=== PATIENT | male | born 1960 | race African-American/Black ===

== ENCOUNTER 2023-06-14 12:13 | Emergency (ER) | payer OTHER, SELFPAY ==
--- NOTE | ~2023-06-14 | CT_ITS ---
Non-contrast Head CT History: Headache Technique: Axial non-contrast imaging of the brain was performed. Dose reduction technique was used on this scan by utilizing automated exposure control and iterative reconstruction technique. The dose -length product (DLP) was 681.00 mGy-cm. Findings: There is no evidence of intracranial hemorrhage, mass lesion, or acute infarct. There are mild low attenuation regions in the periventricular white matter, consistent with chronic microvascul ar ischemic change.. The ventricles and subarachnoid spaces are normal in size. The calvarium appea rs normal. The visualized paranasal sinuses and mastoid air cells are clear. Impression: No acute abnormality seen. Chronic microvascular ischemic changes in the periventricular white matter. Reviewed, dictated and finalized at location . AT [employer] Impression: No acute abnormality seen. Chronic microvascular ischemic changes in the periventricular white matter.
[2023-06-14 12:25] VITALS: BP 155/81; PULSE 69; RESP 16; TEMP 36.6; O2SAT 98
--- NOTE | 2023-06-14 13:03 | ED.HA ---
HPI - Headache General Chief Complaint: Headache Stated Complaint: headaches Time Seen by Provider: 06/14/23 13:03 Focused HPI: Justen is a 63-year-old male patient presenting to the clinic today with complaints of a bilateral parietal headache. He reports that this headache is been going on for the past 3 weeks. He reports he wakes up in the morning and knows that he has a headache. Has not taken anything for his headache until today. Took 500 mg of acetaminophen and now his pain is down to a 1/10. He denies any associated nausea, vomiting, photosensitivity, dizziness, or visual changes. Reports his blood pressures are typically systolic 140/150s. General: Well-developed, obese, in no apparent distress Head: Normocephalic, atraumatic Eyes: Pupils equally round and reactive to light bilaterally, EOM intact, sclera and conjunctive clear, no discharge, lids normal Ears: TMs intact and clear, ear canals clear, no drainage, grossly hearing normal. Nose: Nares patent, no discharge, no inflammation, no sinus tenderness. Mouth: Oropharynx without lesions or masses, good dentition, MMM. Tongue midline, even rise and fall of uvula Neck: Supple, trachea midline, no enlargement of anterior or posterior cervical nodes, no thyroid masses or goiter palpable. Cardio: Regular rate and rhythm, s1 and s2 normal, no murmur appreciated. Resp: Clear to auscultation bilaterally anteriorly and posteriorly, no rhonchi, rales, wheezing or rubs Neuro: Alert and oriented x4 with normal speech, no focal deficits, cranial nerves I through XII intact, muscle strength 5 out of 5, sensation intact bilaterally, Patient screened in triage and initial orders placed. Additional care and disposition to be based upon diagnostic testing and treatment. Source: patient Mode of arrival: ambulatory Limitations: no limitations Related Data Allergies Allergy/AdvReac Type Severity Reaction Status Date / Time codeine AdvReac Unknown Dizziness Verified 05/29/16 17:51 Review of Systems Review of Systems: Pertinent positives per HPI. Patient denies any fever, chills, rash,visual changes, dizziness, cough, runny nose, sore throat, shortness of breath, chest pain, palpitations, nausea, vomiting, diarrhea, constipation, abdominal pain, or any urinary issues. PMFSH Comments At the time of my signature, I reviewed and agree with the nursing past medical, surgical, social, and family history. There is no relevant family history pertinent to the patient complaint. Exam Narrative: General: Well-developed, obese, in no apparent distress Head: Normocephalic, atraumatic Eyes: Pupils equally round and reactive to light bilaterally, EOM intact, sclera and conjunctive clear, no discharge, lids normal Ears: TMs intact and clear, ear canals clear, no drainage, grossly hearing normal. Nose: Nares patent, no discharge, no inflammation, no sinus tenderness. Mouth: Oropharynx without lesions or masses, good dentition, MMM. Tongue midline, even rise and fall of uvula Neck: Supple, trachea midline, no enlargement of anterior or posterior cervical nodes, no thyroid masses or goiter palpable. Cardio: Regular rate and rhythm, s1 and s2 normal, no murmur appreciated. Resp: Clear to auscultation bilaterally anteriorly and posteriorly, no rhonchi, rales, wheezing or rubs Neuro: Alert and oriented x4 with normal speech, no focal deficits, cranial nerves I through XII intact, muscle strength 5 out of 5, sensation intact bilaterally, Course Course Emergency Course: Portions of this record may have been created with voice recognition software. Vital Signs Vital signs: Vital Signs Temperature 36.6 C 06/14/23 12:25 Pulse Rate 69 06/14/23 12:25 Respiratory Rate 16 06/14/23 12:25 Blood Pressure 155/81 H 06/14/23 12:25 Pulse Oximetry 98 06/14/23 12:25 Oxygen Delivery Room Air 06/14/23 12:25 Temperature 36.6 C 06/14/23 12:2
== END 2023-06-14 14:11 | disposition home or self-care (01) ==
PROVIDERS: Emergency Provider Nurse Practitioner Family; PCP Internal Medicine Gastroenterology
DX: R51.9 Headache, unspecified (principal)
CPT/HCPCS: 70450; 99284

== ENCOUNTER 2023-11-18 15:20 | Emergency (ER) | payer OTHER, SELFPAY ==
[2023-11-18] VITALS (11 sets, daily range): BP systolic 119–141; BP diastolic 62–82; PULSE 81–86; RESP 15–27; TEMP 36.6–37.2; O2SAT 95–99
--- NOTE | ~2023-11-18 | XR_ITS ---
EXAMINATION: XR chest 2V DATE: 11/18/2023 16:05 INDICATION: Lethargy. TECHNIQUE: Frontal and lateral views of the chest were obtained. COMPARISON: Chest 2 views 08/11/2018 FINDINGS: Calcified pulmonary nodules and calcified hilar and mediastinal lymph nodes are consistent with old granulomatous disease. There is mild atelectasis in the lower lung zones. No pleural effusio n or pneumothorax. The heart size is normal. IMPRESSION: 1. Mild atelectasis in the lower lung zones. Reviewed, dictated and finalized at location E.
[2023-11-18] MEDS: ACETAMINOPHEN 500 MG TABLET 1000 MG PO (15:50)
[2023-11-18 15:52] LABS: Basophils Percent Auto 0.1 % (0.2-1.2); Eosinophils Absolute Auto 0.1 K/mm3 (0-0.3); Eosinophils Percent Auto 0.8 % (0-4.4); Hematocrit 37.7 % (42.0-52.0); Hemoglobin 12.6 g/dL (14.0-18.0); Immature Granulocyte Absolute 0.07 K/mm3 (0.00-0.031); Immature Granulocyte Percent A 0.5 % (0-0.5); Lymphocytes Absolute Auto 0.59 K/mm3 (0.9-3.2); Mean Corpuscular HGB Conc 33.4 g/dl (32-36); Mean Corpuscular Hemoglobin 30.1 pg (26-34); Mean Platelet Volume 11.5 fl (7.4-10.4); Monocytes Absolute Auto 1.4 K/mm3 (0.1-0.6); Monocytes Percent Auto 9.4 % (2.6-8.5); Neutrophils Absolute Auto 12.5 K/mm3 (1.3-6.7); Neutrophils Percent Auto 85.2 % (45.5-73.1); Platelet Count Result 174 k/mm3 (150-375); Red Blood Count 4.19 M/mm3 (4.6-6.20); Red Cell Distribution Width 14.8 % (11.5-14.5); White Blood Count 14.6 K/mm3 (4.5-10.0)
[2023-11-18 16:04] LABS: Ethanol < 10 mg/dL (<10)
[2023-11-18 16:05] LABS: Alanine Aminotransferase 16 U/L (6-50); Albumin Level 4.1 g/dL (3.5-5.1); Alkaline Phosphatase 73 U/L (38-126); Anion Gap 10 mmol/L (4-12); Aspartate Amino Transferase 26 U/L (17-59); Bilirubin,Total 0.8 mg/dL (0.2-1.3); Blood Urea Nitrogen 22 mg/dL (9-20); Calcium 9.1 mg/dL (8.4-10.2); Carbon Dioxide 26 mmol/L (22-30); Chloride 97 mmol/L (98-107); Estimated CRCL calculation 60 ml/min; Estimated Glomerular Filt Rate 53; Glucose 163 mg/dL (65-110); Potassium 4.2 mmol/L (3.4-5.0); Sodium 133 mmol/L (137-145)
[2023-11-18 16:12] LABS: NT Pro B Type Natriuretic Pept 565 pg/mL (19.9-100)
[2023-11-18 16:27] LABS: Add Urine Microscopic? YES; Appearance Urine Clear (Clear); Bacteria Urine None Seen /hpf; Bilirubin Urine Negative (Negative); Blood Urine Negative (Negative); Color Urine Yellow (Yellow); Glucose Urine UA 3+ mg/dL (Negative); Ketones Urine Negative (Negative); Leukocyte Esterase Ur Negative LEU/UL (Negative); Nitrate Urine Negative (Negative); Non Pathogenic Casts 0-2; Protein Urine 2+ mg/dL (Negative); RBC Urine 0-2 /hpf (0-2); Specific Grav Ur 1.017 (1.001-1.035); Squamous Epithelial Cell Urine None Seen /hpf (Few); Urobilinogen Urine 0.2 mg/dL (<2.0); WBC Urine 0-5 /hpf (0-3); pH Urine 5.5 (5.0-9.0)
[2023-11-18 16:28] LABS: Influenza A QL RT-PCR Negative (Negative); Influenza B QL RT-PCR Negative (Negative); RSV RNA, RT-PCR Negative (Negative); SARS-CoV-2 RNA PCR Negative (Negative)
[2023-11-18 16:52] LABS: Amphetamine Screen Urine Negative (Negative); Barbiturate Screen Urine Negative (Negative); Benzodiazepines Screen Urine Negative (Negative); Cannabinoid Screen Urine Negative (Negative); Cocaine Screen Urine Negative (Negative); Methadone Screen Urine Negative (Negative); Opiate Screen Urine Negative (Negative); Phencyclidine Screen Urine Negative (Negative)
[2023-11-18] MEDS: SODIUM CHLORIDE 0.9% IV 1,000 ML 999 ML IV CONT (17:51)
--- NOTE | 2023-11-18 18:30 | ED.NAVMDI ---
HPI - Nausea/Vomiting/Diarrhea General Chief complaint: Nausea/Vomiting/Diarrhea Stated complaint: overheated Time Seen by Provider: 11/18/23 15:21 History of Present Illness HPI Narrative: 63-year-old male presents to the emergency department via EMS from [facility] for an episode of vomiting that occurred at 1:30 p.m.. Patient was at [facility] wearing pants, long sleeves and sports jacket and had episode of vomiting. States he has had chills since. He denies known fever, diarrhea, abdominal pain, chest pain or shortness of breath, cough or congestion. Denies EtOH or drug use. His past medical history of COPD, hypertension, CHF type 2 diabetes. His legs have nonpitting edema consistent with lymphedema which patient states is chronic , edema is unchanged. Related Data Allergies Allergy/AdvReac Type Severity Reaction Status Date / Time codeine AdvReac Unknown Dizziness Verified 11/18/23 15:51 Review of Systems Review of Systems: All systems reviewed & are unremarkable except as noted in HPI and below Exam Narrative: GENERAL: Well-appearing, well-nourished, and in no acute distress. HEAD: Normocephalic, atraumatic. EYES: PERRLA and EOMI. ENT: Nares clear, no rhinorrhea or epistaxis. Mucous membranes Dry. NECK: Supple. CHEST: Clear to auscultation. No respiratory distress. HEART: Regular rate and rhythm. No murmur heard. Normal peripheral pulses. ABDOMEN: Soft, nontender, nondistended, normal active bowel sounds. EXTREMITIES: large nonpitting edema bilateral lower extremities without erythema or warmth, no open wounds. Sensation intact, strength you warm and dry SKIN: Warm, dry, no rash. NEURO: No focal deficits. Alert and oriented x3 Course Vital Signs Vital signs: Vital Signs Temperature 99 F 11/18/23 15:21 Pulse Rate 82 11/18/23 15:21 Respiratory Rate 15 11/18/23 15:21 Pulse Oximetry 99 11/18/23 15:21 Oxygen Delivery Room Air 11/18/23 15:21 Temperature 97.9 F 11/18/23 18:33 Pulse Rate 84 11/18/23 17:31 Respiratory Rate 27 H 11/18/23 17:31 Blood Pressure 119/62 11/18/23 18:01 Pulse Oximetry 95 11/18/23 18:01 Oxygen Delivery Room Air 11/18/23 15:21 MDM - Nausea/Vomiting/Diarrhea MDM Narrative Medical decision making narrative: 63-year-old male presents to the emergency department for an episode of vomiting that occurred while at [facility] and chills. Vital stable. He is afebrile nontoxic appearing. Exam is significant for the above. CBC with nonspecific leukocytosis of 14.6, no bandemia. Hemoglobin at baseline. Chemistries within elevation in creatinine to 1.6 and BUN to 22, sodium 133 chloride and 97. Prior labs for comparison are from 2019 where creatinine was 1.3. UA with glucosuria proteinuria, no infection. COVID, flu and RSV are negative. UDS negative. He to HS and 10. BNP not elevated when age adjusted and chest x-ray shows no pulmonary edema, pleural effusion or evidence of pneumonia. There is mild atelectasis in the lower lung zones. Patient was given a L of fluids and Tylenol With improvement. He is tolerating p.o. intake. Feel he is safe to be discharged home with script for Zofran and close PCP follow-up. Strict ED return precautions discussed. He is agreeable with the plan verbalized understanding. Discharged in stable condition. Lab Data 11/18/23 15:46 11/18/23 15:46 Labs: Lab Results 11/18/23 11/18/23 11/18/23 Range/Units 15:42 15:46 16:16 WBC 14.6 H (4.5-10.0) K/mm3 RBC 4.19 L (4.6-6.20) M/mm3 Hgb 12.6 L (14.0-18.0) g/dL Hct 37.7 L (42.0-52.0) % MCV 90.0 (80-100) fl MCH 30.1 (26-34) pg MCHC 33.4 (32-36) g/dl RDW 14.8 H (11.5-14.5) % Plt Count 174 (150-375) k/mm3 MPV 11.5 H (7.4-10.4) fl Immature Gran % (Auto) 0.5 (0-0.5) % Neut % (Auto) 85.2 H (45.5-73.1) % Lymph % (Auto) 4.0 L (18.3-44.2) % Terry % (Auto) 9.4 H (2.6-8.5) % Eos
== END 2023-11-18 18:53 | disposition home or self-care (01) ==
PROVIDERS: Emergency Provider Physician Assistant; PCP Internal Medicine Gastroenterology
DX: R11.2 Nausea with vomiting, unspecified (principal); Z20.822 Contact with and (suspected) exposure to COVID-19; I50.9 Heart failure, unspecified; I11.0 Hypertensive heart disease with heart failure; E11.9 Type 2 diabetes mellitus without complications; J44.9 Chronic obstructive pulmonary disease, unspecified
CPT/HCPCS: 36415; 71046; 80053; 80307; 81001; 83880; 85025; 87637; 96360; 99284; A9270; J7030